=== PATIENT | female | born 1975 ===

== ENCOUNTER 2021-12-25 08:25 | Outpatient (CLI) | payer MEDICAID ==
--- NOTE | 2021-12-25 11:27 | Ultrasound Report ---
See combined report Signer Name: Darren Bundy MD Signed: 12/25/2021 11:22 AM Workstation Name: [email or web address]
--- NOTE | 2021-12-25 11:35 | Mammography Report ---
BILATERAL DIGITAL DIAGNOSTIC MAMMOGRAM WITH CAD CONVENTIONAL, 12/25/2021 LEFT LIMITED BREAST ULTRASOUND CLINICAL INFORMATION / INDICATION: Left lateral palpable abnormality with pain TECHNIQUE: Digital bilateral mammographic imaging was performed. Spot compression views were obtained . Limited ultrasound was performed. This examination was interpreted with the benefit of Computer-Aid ed Detection (CAD) analysis. COMPARISON: None available FINDINGS: Breast Density: The breasts are heterogeneously dense, which may obscure small masses. MAMMOGRAPHIC FINDINGS: No significant abnormalities are seen in either breast. Small benign-appearing lymph node with a fatty hilum is noted in the upper outer left breast axillary tail region. No other abnormalities are seen. ULTRASOUND FINDINGS: Targeted ultrasound evaluation was performed of the area of interest. Evaluation of the lateral left breast shows in the 1:00 position, 10 cm from the nipple, a benign-appearing lym ph node with a defined fatty hilum. Scattered throughout the lateral aspect of the left breast are mu ltiple benign-appearing lesions which are mostly cysts, some mildly complicated. A cyst cluster is se en in the 2:00 position, 6 cm from the nipple, measuring 9 mm. In the 2:00 position, 8 cm from the ni pple, small hypoechoic area is noted which could be a complicated cyst but is indeterminate. No shado wing or vascularity are seen. Possibly this is a small complicated cyst cluster. A cyst at 5:00, 6 cm nipple, a minimal wall calcification but no wall thickening or soft tissue prominent is seen. IMPRESSION: No lesions are seen thought likely of concern in the region of patient complaint. Follow up recommendation: Clinical assessment of the area of complaint is suggested. Unless there is overriding clinical concern, I would suggest follow-up left breast ultrasound in 6 months. BI-RADS Category 3: PROBABLY BENIGN. Followup in 6 months. A "normal" or negative report should not discourage follow up or biopsy of a clinically significant f inding. A written summary of these findings will be mailed to the patient. The patient will be entered into a mammography reporting system which will generate a reminder letter for the patient's next appointmen t at the appropriate interval. According to the [employer], yearly mammograms are recommended starting at age 40 and continuing as long as a woman is in good health. Breast MRI is recommended for women with an carol roximately 20-25% or greater lifetime risk of breast cancer, including women with a strong family his tory of breast or ovarian cancer and women who have been treated for Hodgkin's disease. Signer Name: Darren Bundy MD Signed: 12/25/2021 11:31 AM Workstation Name: [id number]
== END 2021-12-25 08:26 | disposition home or self-care (01) ==
LOC: MAMMO 08:25
PROVIDERS: ATTEND Advanced Practice Midwife
DX: N60.02 Solitary cyst of left breast (principal); N60.01 Solitary cyst of right breast; R92.1 Mammographic calcification found on diagnostic imaging of breast
CPT/HCPCS: 77066